=== PATIENT | female | born 1970 | race Caucasian/White ===

== ENCOUNTER 2018-07-09 13:34 | Emergency (ER) | payer BC ==
[~2018-07-09] VITALS: Ht 160 cm; Wt 90.7 kg
--- NOTE | ~2018-07-09 | EKG ---
[address] [place] [address] ELECTROCARDIOGRAM REPORT Name: MODE SHIELDS Room #: DEP ES [place]#: [id number] Admission: 07/09/18 Attend Phys: Discharge: 07/09/18 Date of : 72 Report #: [id number] THIS REPORT FOR: //name// [facility] ED Test Date: 2018-07-09 Test Time: 13:47:25 Pat Name: MODE SHIELDS Department: Room: Gender: F [employer]elry Sales Representative: : 1970 Requested By: Ruthann Acevedo Order Number: [id number] MD: Archie Hays Measurements Intervals [place] Rate: 83 P: 22 MT: 143 QRS: -4 QRSD: 121 T: 18 QT: 397 QTc: 467 Interpretive Statements Sinus rhythm Nonspecific intraventricular conduction delay No previous ECG available for comparison Electronically Signed On 07-10-2018 12:59:03 CDT by Archie Hays [email or web address] <ELECTRONICALLY SIGNED> By: Archie Hays MD 07/10/18 1259 [id number] MD MICHAEL Ford
[~2018-07-09 13:34] MED LIST: ALLEGRA ALLERGY60 MG PO; FLEXERIL PO; GRALISE600 MG PO; HYDROCODONE-AP1 EAC6 PO; IBUPROFEN 600600 M1 PO; LAMICTAL100 MG PO; LYRICA 75 MG CA75 MG PO; MOBIC15 MG PO; NEURONTIN 300300 M1 PO; TRAMADOL 50 MG50 MG PO; ULTRAM 50MG TAB50 MG PO; VITAMIN B125000 MCG PO; VITAMIN D1000 UNI1 PO; XANAX 0.5 MG0.5 MG PO; ZOLOFT50 MG PO
[2018-07-09 14:47] LABS: URINE BLOOD NEGATIVE (Negative); URINE CLARITY SL CLOUDY; URINE COLOR YELLOW; URINE GLUCOSE-RANDOM* NEGATIVE (Negative); URINE KETONES 1+ (Negative); URINE LEUKOCYTES-REFLEX NEGATIVE (Negative); URINE NITRITE-REFLEX NEGATIVE (Negative); URINE PROTEIN (DIPSTICK) 1+ (Negative); URINE SPECIFIC GRAVITY >= 1.030 (1.005-1.035); URINE UROBILINOGEN 0.2 E.U./dl (0.2-1.0)
[2018-07-09 14:50] LABS: ICTOTEST (BILI CONFIRMATORY) Negative (Negative); URINE BILIRUBIN NEGATIVE (Negative)
[2018-07-09 14:54] LABS: MUCUS >6 Heavy strn/LPF (None Seen); SQUAMOUS >10 Many /LPF (0-3)
[2018-07-09 15:00] LABS: URINE RBC 0-2 Rare /HPF (0-2); URINE WBC-REFLEX 0-5 Rare /HPF (0-5)
[2018-07-09 15:03] LABS: AMORPHOUS URATES Few /LPF (None Seen); BACTERIA-REFLEX None Seen /HPF (None Seen); CASTS None Seen /LPF (None Seen)
[2018-07-09 16:53] LABS: ABSOLUTE NEUTROPHILS 5.4 thou/uL (1.4-8.2); BASOPHILS 0.6 % (0.0-2.0); EOSINOPHILS 4.1 % (0.0-3.0); HEMATOCRIT 35.8 % (37.0-47.0); HEMOGLOBIN 12.2 gm/dL (12.0-15.0); LYMPHOCYTES 28.7 % (24.0-44.0); MCH 27.4 pg (26.0-34.0); MCHC 34.1 g/dL (28.0-37.0); MCV 80.6 fL (80.0-100.0); MONOCYTES 5.4 % (1.0-8.0); PLATELET COUNT 239 thou/uL (150-400); POLYS 61.2 % (36.0-66.0); RBC 4.44 mil/uL (4.20-5.00); RDW 14.2 % (10.5-14.5); WBC 8.8 thou/uL (4.0-11.0)
[2018-07-09 17:06] LABS: CALCIUM 9.3 mg/dL (8.5-10.1); CREATININE 0.7 mg/dL (0.6-1.0); POTASSIUM 3.3 mmol/L (3.5-5.1)
[2018-07-09 17:11] LABS: ALBUMIN 3.4 g/dL (3.4-5.0); DIRECT BILIRUBIN 0.1 mg/dL (<0.1-0.3); TOTAL BILIRUBIN 0.8 mg/dL (<0.1-1.0); TOTAL PROTEIN 7.1 g/dL (6.4-8.2)
[2018-07-09 18:55] VITALS: BP 121/67
== END 2018-07-09 18:57 | disposition home or self-care (01) ==
LOC: ER 13:34
PROVIDERS: Emergency Medicine
DX: R07.9 Chest pain, unspecified (principal); R51 Headache; G89.18 Other acute postprocedural pain; R10.9 Unspecified abdominal pain; R11.10 Vomiting, unspecified